=== PATIENT | female | born 1980 | race African-American/Black ===

== ENCOUNTER 2017-07-10 14:10 | Emergency (ER) | payer BC, OTHER ==
[2017-07-10 15:43] VITALS: BP 119/69
[2017-07-10] MEDS ORDERED: methylPREDNISolone SOD SUCC PF 125 MG/2 ML VIAL. IM ONE (16:15)
[2017-07-10] MEDS ORDERED: HYDROcodone/APAP 5/325MG 1 TAB TABLET PO ONE (16:15)
[2017-07-10] MEDS ORDERED: ORPHENADRINE CITRATE 60 MG/2 ML VIAL. IM ONE (16:15)
[2017-07-10] MEDS ORDERED: CYCL5TAB PO (16:24)
[2017-07-10] MEDS ORDERED: PRED20TA PO (16:24)
[2017-07-10] MEDS ORDERED: TRAM-48 PO (16:24)
--- NOTE | 2017-07-10 16:25 | PHYS DOC ---
Past Medical History Past Medical History: No Pertinent History, Migraines Additional Past Medical Histor: trigeminal neuralgia Past Surgical History: Appendectomy, Cholecystectomy, Tubal ligation Additional Past Surgical Histo: decompression surgery Alcohol Use: None Drug Use: None Adult General Chief Complaint Chief Complaint: BACK PAIN - [facility] HPI Patient is a 36 year old female presents to the emergency department stating that she is having lower back pain and discomfort. She denies any radiation down into the legs. She denies any numbness or tingling. Patient denies any injury or trauma. She denies any loss of bowel or bladder. Patient states she did take some Flexeril help with pain with no relief. Patient states she is unable to take ibuprofen or any type of nonsteroidal anti-inflammatories due to an ulcer. Patient appears to have difficulty with standing she does have a somewhat of a steady gait. Review of Systems Review of Systems Constitutional: Denies fever or chills [] Eyes: Denies change in visual acuity, redness, or eye pain [] HENT: Denies nasal congestion or sore throat [] Respiratory: Denies cough or shortness of breath [] Cardiovascular: No additional information not addressed in HPI [] GI: Denies abdominal pain, nausea, vomiting, bloody stools or diarrhea [] : Denies dysuria or hematuria [] Musculoskeletal: Complaining of lower back pain denies any joint pain Integument: Denies rash or skin lesions [] Neurologic: Denies headache, focal weakness or sensory changes [] Endocrine: Denies polyuria or polydipsia [] Current Medications Current Medications Current Medications Medications (Trade) Dose Ordered Sig/[facility] Start Time Stop Time Status Last Admin Dose Admin Acetaminophen/ Hydrocodone Bitart (Lortab 5/325) 2 tab 1X ONCE 07/10/17 16:15 07/10/17 16:16 DC Methylprednisolone Sodium Succinate (SOLU-Medrol 125MG VIAL) 125 mg 1X ONCE 07/10/17 16:15 07/10/17 16:16 DC Orphenadrine Citrate (Norflex) 60 mg 1X ONCE 07/10/17 16:15 07/10/17 16:16 DC Allergies Allergies Allergies Coded Allergies Type Severity Reaction Last Updated Verified No Known Drug Allergies 07/31/14 No Physical Exam Physical Exam Constitutional: Well developed, well nourished, no acute distress, non-toxic appearance. [] HENT: Normocephalic, atraumatic, bilateral external ears normal, oropharynx moist, no oral exudates, nose normal. [] Eyes: PERRLA, EOMI, conjunctiva normal, no discharge. [] Neck: Normal range of motion, no tenderness, supple, no stridor. [] Cardiovascular:Heart rate regular rhythm Lungs & Thorax: No respiratory distress noted Skin: Warm, dry, no erythema, no rash. [] Back: No thoracic spine, lumbar spine tenderness, no step-offs no deformities and no crepitus noted. Patient did have tenderness noted along the lower back area bilaterally. Extremities: No tenderness, no cyanosis, no clubbing, ROM intact, no edema. Peripheral pulses are 2+ cap refill brisk less than 2 seconds. Neurologic: Alert and oriented X 3, normal motor function, normal sensory function, no focal deficits noted. [] Psychologic: Affect normal, judgement normal, mood normal. [] Current Patient Data Vital Signs Vital Signs Date Time Temp Pulse Resp B/P (MAP) Pulse Ox O2 Delivery O2 Flow Rate FiO2 07/10/17 15:43 98.2 87 18 99 Room Air 98.2 EKG EKG [] Radiology/Procedures Radiology/Procedures [] Course & Med Decision Making Course & Med Decision Making Pertinent Labs and Imaging studies reviewed. (See chart for details) Patient will be provided with Norflex here in the emergency department, Solu- Medrol, and hydrocodone for pain and discomfort. Patient will be discharged home on prednisone, Flexeril, and Ultram, these medications will cause drowsiness do not take any be alert and oriented. Recommended that she use ice packs on 20 minutes off 20 minutes several times a day. Recommended that she follow up with her primary care physician in the next week for further evaluation and possible PT, possible MRI. Patient will be discharged home in stable condition. Signs and symptoms to return back to emergency department as been provided. Patient agrees with discharge instructions, treatment regimens and follow-up recommendations. All questions and concerns been answered at patient's bedside. She'll be provided with a workup for 2 days. [] Dragon Disclaimer Dragon Disclaimer This electronic medical record was generated, in whole or in part, using a voice recognition dictation system. Departure Departure Impression: Primary Impression: Back pain Disposition: HOME, SELF-CARE Condition: STABLE Referrals: JONI COSTA MD (PCP) Patient Instructions: Back Exercises, Generic, SportsMed, Back Pain, Adult, [id number] Additional Instructions: Activity as tolerated. Medications as prescribed. Flexeril and Ultram will cause drowsiness do not take any be alert and oriented. Prednisone as prescribed. Ice packs on 20 minutes off 20 minutes several times a day. Follow-up to primary care physician in the next week. Return back to emergency prior signs and symptoms of become worse. Scripts Tramadol Hcl (ULTRAM) 50 Mg Tablet 1 TAB PO Q6HRS, #15 TAB Prov: ARSEN MOULTON APRN 07/10/17 Prednisone (PREDNISONE) 20 Mg Tablet 40 MG PO DAILY for 7 Days, #14 TAB Prov: ARSEN MOULTON APRN 07/10/17 Cyclobenzaprine Hcl (CYCLOBENZAPRINE HCL) 5 Mg Tablet 1 TAB PO TID Y for MUSCLE SPASMS, #30 TAB Prov: ARSEN MOULTON APRN 07/10/17 Problem Qualifiers Primary Impression: Back pain Back pain location: low back pain Chronicity: unspecified Back pain laterality: bilateral Sciatica presence: without sciatica Qualified Codes: M54.5 - Low back pain ARSEN MOULTON APRN Jul 10, 2017 16:25
== END 2017-07-10 16:37 | disposition home or self-care (01) ==
LOC: ER 14:10
DX: M54.5 Low back pain (principal); G43.909 Migraine, unspecified, not intractable, without status migrainosus; Z90.49 Acquired absence of other specified parts of digestive tract
CPT/HCPCS: 96372; 99284; J2360; J2930

== ENCOUNTER → 2019-12-05 | Outpatient (CLI) | payer MEDICAID ==
[~2019-12-05] MED LIST: CYCL5TAB PO; PRED20TA PO; TRAM-48 PO
--- NOTE | 2019-12-05 09:47 | KCIC ---
Complete abdominal ultrasound 12/05/2019 9:00 AM Clinical History: Abdominal pain Technique: Ultrasound examination of the abdomen was performed, and multiple static images were submitted for review. Comparison: None Findings: The visualized portions of the pancreas are within normal limits. The visualized aorta and IVC are unremarkable. Gallbladder surgically absent. The liver is enlarged measuring 20 cm longitudinally. There is a mild diffuse increased hepatic echogenicity suggesting hepatic steatosis.. No intrahepatic biliary dilatation is seen. Common bile duct is nondilated at 4 mm. No focal hepatic lesions are identified. There is borderline splenomegaly with spleen measuring approximately 12 cm longitudinally. The bilateral kidneys are normal in appearance without evidence of obstructive uropathy, nephrolithiasis, or focal renal lesion. Right kidney measures 11.6 cm in length. Left kidney measures 12.5 cm in length. Impression: 1. Hepatomegaly, probable hepatic steatosis 2. Borderline splenomegaly Electronically signed by: Eric Tomlinson MD (12/05/2019 9:44 AM) [id number]
--- NOTE | 2019-12-05 15:44 | KCIC ---
Examination: Ultrasound pelvis HISTORY: History of pelvic pain COMPARISON: None available FINDINGS: The uterus measures 8.1 x 6.0 x 4.4 cm. Endometrium measures 1.2 mm in thickness. Tiny cystic structure identified in the uterus measuring 4 mm probably a cyst. Right ovary is not seen. Left ovary measures 3.3 x 2.7 x 1.3 cm. Few follicles identified in the left ovary. Simple appearing free fluid identified in the right and left adnexa. IMPRESSION: 1. Probable 4 mm cyst in the uterus. 2. Right ovary could not be identified. Electronically signed by: Jose Pinedo MD (12/05/2019 3:41 PM) [facility]
== END | disposition home or self-care (01) ==
LOC: KCIC US 08:12
PROVIDERS: ATTEND Family Medicine
DX: R16.2 Hepatomegaly with splenomegaly, not elsewhere classified (principal); N85.8 Other specified noninflammatory disorders of uterus
CPT/HCPCS: 76700; 76830; 76856